=== PATIENT | female | born 1995 | race Hispanic/Latino ===

== ENCOUNTER 2019-08-08 19:53 | Emergency (ER) | payer BC ==
[2019-08-08] MEDS ORDERED: HYDROcodone/Acetaminophen 10/325 mg Tablet ONE (20:14)
[2019-08-08] MEDS ORDERED: Acetaminophen 500 MG TAB ONE (20:14)
--- NOTE | 2019-08-08 20:24 | RAD ---
Right ankle: 3 VIEWS INDICATION:Injury and pain COMPARISON:None FINDINGS: Soft tissue swelling laterally No evidence of fracture. No osseous abnormality identified. IMPRESSION: No evidence of fracture
--- NOTE | 2019-08-08 20:25 | RAD ---
EXAM: Right foot: 3 views INDICATIONS: Injury COMPARISON: None. FINDINGS: Tarsals appear intact. Metatarsals and phalanges appear intact. MTP joints unremarkable. IMPRESSION: No acute finding
== END 2019-08-08 20:53 | disposition home or self-care (01) ==
LOC: ERS 19:53
DX: S93.401A Sprain of unspecified ligament of right ankle, initial encounter (principal); W09.8XXA Fall on or from other playground equipment, initial encounter
CPT/HCPCS: 29515